=== PATIENT | female | born 1945 | race Caucasian/White ===

== ENCOUNTER 2021-03-01 08:22 | Outpatient (CLI) | payer MEDICARE, OTHER ==
--- NOTE | 2021-03-01 17:03 | DEXA Report ---
PROCEDURE: Dexa Spine and/or Hip INDICATIONS: PREMENOPAUSAL TECHNIQUE: Dual energy x-ray absorptiometry (DXA) was performed on a [employer] System. Regions measur ed are the AP Spine, femoral neck, and if needed forearm. COMPARISON: None. FINDINGS: Lumbar Spine: Bone Mineral Density 1.782 g/cm/cm,T score 5.0, normal Left Hip: Bone Mineral Density 1.190 g/cm/cm,T score 1.4, normal Left Femoral Neck: Bone Mineral Density 1.295 g/cm/cm, T score 1.8, normal (T score greater or equal to -1.0: NORMAL) (T score from -1.1 to -2.4: OSTEOPENIA) (T score less than or equal to -2.5 to: OSTEOPOROSIS) Impression: Normal bone mineral density. Patients with diagnosis of osteoporosis or osteopenia should have regular bone mineral density assess ment. For those eligible for Medicare, routine testing is allowed once every 2 years. Testing frequ ency can be increased for patients who have rapidly progressing disease or for those who are receivin g medical therapy to restore bone mass. Reviewed by: Karla Lopez MD, PhD on 03/01/2021 5:02 PM PDT Approved by: Karla Lopez MD, PhD on 03/01/2021 5:02 PM PDT Station ID: [id number]
== END 2021-03-01 08:23 | disposition home or self-care (01) ==
LOC: DI 08:22
PROVIDERS: ATTEND Internal Medicine
DX: Z13.820 Encounter for screening for osteoporosis (principal); Z78.0 Asymptomatic menopausal state